=== PATIENT | female | born 1975 | race Caucasian/White ===

== ENCOUNTER 2020-09-14 17:20 | Emergency (ER) | payer OTHER ==
[2020-09-14 17:42] VITALS: BMI 30.2
[2020-09-14] MEDS ORDERED: ACETAMINOPHEN 500 MG TABLET (FP) PO ONE (21:22)
[2020-09-14] MEDS ORDERED: ACETAMINOPHEN 325 MG TABLET (FP) ONE (21:31)
[2020-09-14 22:35] LABS: BASO % 0.9 % (0-2.0); EOS % 0.7 % (0-4.5); HEMATOCRIT 33.7 % (32.4-45.2); HEMOGLOBIN 11.4 GM/dL (10.7-15.3); MCH 26.5 pg (25.7-33.7); MCHC 33.8 g/dl (32.0-36.0); MEAN CELL VOLUME 78.5 fl (80-96); MEAN PLT VOLUME 9.8 fl (7.5-11.1); MONO % 4.4 % (3.8-10.2); PLATELET COUNT 255 K/MM3 (134-434); RBC 4.29 M/mm3 (3.60-5.2); RDW 17.4 % (11.6-15.6)
[2020-09-14 22:46] LABS: INR 1.07 (0.83-1.09); PROTHROMBIN TIME (PATIENT) 13.1 SEC (9.7-13.0)
[2020-09-14 22:49] LABS: ACTIVATED PTT 31.5 SECONDS (25.2-36.5)
[2020-09-14 22:50] LABS: BLOOD UREA NITROGEN 11.8 mg/dL (7-18); CALCIUM 9.3 mg/dL (8.5-10.1)
[2020-09-14 22:51] LABS: ALBUMIN 3.6 g/dl (3.4-5.0)
[2020-09-14 22:54] LABS: CREATININE 0.8 mg/dL (0.55-1.3)
[2020-09-14 22:56] LABS: BILIRUBIN,TOTAL 0.4 mg/dL (0.2-1); TOT PROT 8.4 g/dl (6.4-8.2)
[2020-09-14 23:42] LABS: POTASSIUM 6.3 mmol/L (3.5-5.1)
[2020-09-15 06:02] VITALS: BP 121/95; PULSE 99; TEMP 99.2
== END 2020-09-15 01:29 | disposition home or self-care (01) ==
LOC: JER 17:20
DX: N60.02 Solitary cyst of left breast (principal)
CPT/HCPCS: 36415; 76642-TC-LT; 80053; 84703; 85025; 85610; 85730; 87040; 99285-25; C9803; U0003

== ENCOUNTER 2021-07-31 15:26 | Emergency (ER) | payer OTHER ==
[2021-07-31 15:35] VITALS: BP 155/91; PULSE 103; TEMP 98; BMI 29.2
== END 2021-07-31 17:04 | disposition home or self-care (01) ==
LOC: JERFT 15:26
DX: R09.89 Other specified symptoms and signs involving the circulatory and respiratory systems (principal)
CPT/HCPCS: 99281-25

== ENCOUNTER 2022-05-21 19:07 | Emergency (ER) | payer OTHER ==
[2022-05-21 19:24] VITALS: BP 145/92; PULSE 102; RESP 17; TEMP 98.8; BMI 29.2
[2022-05-21] MEDS ORDERED: IBUPROFEN 600 MG TABLET (FP) PO ONE ×2 (21:09→21:14)
[2022-05-21] MEDS ORDERED: predniSONE 20 MG TABLET (UD) PO ONE (21:09)
[2022-05-21] MEDS ORDERED: ALBUTEROL SO4 2.5/IPRATROPIUM 0.5 INH SOL 3 ML VIAL.NEB. NEB ONE ×2 (21:09→21:14)
[2022-05-21] MEDS ORDERED: predniSONE 20 MG TABLET (UD) ONE (21:15)
== END 2022-05-21 22:48 | disposition home or self-care (01) ==
LOC: JER 19:07 → JERFT 19:07
PROC: 3E0F7GC Introduction of Other Therapeutic Substance into Respiratory Tract, Via Natural or Artificial Opening (ICD-10-PCS; principal; 2022-05-21)
DX: R05.1 Acute cough (principal); R51.9 Headache, unspecified; J09.X2 Influenza due to identified novel influenza A virus with other respiratory manifestations
CPT/HCPCS: 0241U-QW; 71046-TC-FY; 99284-25